=== PATIENT | female | born 1950 | race Caucasian/White ===

== ENCOUNTER → 2016-08-19 | Outpatient (CLI) | payer BC, OTHER ==
[2016-08-19 10:21] LABS: CH 31.1; CHCM 30.7; HCT 39.8 % (34.0-46.0); HDW 1.97; HGB 12.6 gm/dL (11.4-16.0); Hypochromasia Slight; MCH 32.2 pg (25.0-35.0); MCHC 31.6 g/dL (31.0-37.0); MCV 101.9 fL (80.0-100.0); Macrocytosis Slight; Mean Platelet Volume 7.2; RBC 3.91 m/uL (3.80-5.40); RDW 13.1 % (11.5-15.5); WBC 4.1 k/uL (3.8-10.6)
[2016-08-19 10:28] LABS: ALT 26 U/L (9-52); AST 26 U/L (14-36); Alkaline Phosphatase 52 U/L (38-126); Anion Gap 8 mmol/L; Blood Urea Nitrogen 10 mg/dL (7-17); Calcium 9.8 mg/dL (8.4-10.2); Carbon Dioxide 29 mmol/L (22-30); Chloride 106 mmol/L (98-107); Cholesterol 236 mg/dL (<200); HDL Cholesterol 101 mg/dL (40-60); Non-African American GFR(MDRD) >60 (>60 ml/min/1.73 sqM); Potassium 4.3 mmol/L (3.5-5.1); Sodium 143 mmol/L (137-145); Total Bilirubin 0.7 mg/dL (0.2-1.3); Triglycerides 81 mg/dL (<150)
[2016-08-19 10:45] LABS: Glucose 50 mg/dL (74-99)
== END | disposition home or self-care (01) ==
LOC: LABWHC1 09:35
PROVIDERS: ATTEND Internal Medicine Clinical Cardiac Electrophysiology
DX: E78.5 Hyperlipidemia, unspecified (principal); I48.0 Paroxysmal atrial fibrillation; R94.39 Abnormal result of other cardiovascular function study
CPT/HCPCS: 36415; 80053; 80061; 84443; 85027

== ENCOUNTER → 2016-09-01 | Day surgery (SDC) | payer BC, OTHER ==
[2016-08-31 10:23] VITALS: BMI 25.0
[~2016-09-01] MED LIST: ACETAMINOPHEN TAB 500 MG TAB PO PRN; ALPRAZolam 0.25 MG TAB PO PRN; ALPRAZolam 0.5 MG TAB PO PRN; ASPIRIN 325 MG TAB PO STA; ATORVASTATIN 80 MG TAB PO STA; CETIRIZINE HCL 5 MG PO PRN; DIGOXIN 250 MCG TAB PO SCH; IOHEXOL 350 MG/ML 125ML BOTTLE INJ ONE; LIDOCAINE 2% INJ 20 MG/ML (20 ML MDV) ONE; LIDOCAINE 2% INJ 20 MG/ML SQ ONE; LORazepam 1 MG TAB PO PRN; METOPROLOL SUCCINATE (ER) 25 MG TAB.ER.24H PO SCH; MIDAZOLAM 2 MG/2 ML VIAL IV ONE; NITROGLYCERIN SL TABS 0.4 MG TAB SUBLINGUAL PRN; NON-FORMULARY DRUG (Aspirin [Adult Low Dose Aspirin Ec] 162 MG) PO SCH; RX INFO: IV CONTRAST WAS GIVEN 1 EACH MISC MISCELLANE PRN; SODIUM CHLORIDE 0.9% 1,000 ML IV SCH; SODIUM CHLORIDE 0.9% 1,000 ML in EMPTY BAG 1 BAG IV ONE; TEMAZEPAM 30 MG CAP PO PRN; VERAPAMIL 2.5 MG/ML 2 ML AMP ONE; diphenhydrAMINE 50 MG/ML 1 ML VIAL IVP ONE; diphenhydrAMINE 50 MG/ML 1 ML VIAL ONE; fentaNYL (PF) 50 MCG/ML 2 ML AMP IV ONE; fentaNYL (PF) 50 MCG/ML 2 ML AMP ONE
[2016-09-01 07:07] VITALS: RESP 18
[2016-09-01 07:30] LABS: Glucose,Whole Blood 80 mg/dL (75-99)
--- NOTE | 2016-09-01 10:59 | CC ---
DATE OF SERVICE: Ms. Arriaga is a 66-year-old female with known history of hyperlipidemia, paroxysmal atrial fibrillation who has been complaining of dyspnea on exertion. Has underwent a stress echocardiogram by Dr. Cramer, was found to have an abnormal stress echo and because of that, recommendation regarding cardiac catheterization. The procedure as well as the risks and complications were discussed with the patient who was in full understanding and agreement. PROCEDURE: Patient was brought to the [facility] in a fasting semi-sedated state after introducing fentanyl and Benadryl and achieving moderate conscious sedated state. Using Xylocaine anesthesia and Seldinger technique, the right radial artery was cannulated but there was inability to advance the wire because of vasospasm. At that time, using Xylocaine anesthesia and Seldinger technique, a 6 Algerian sheath was introduced in the right femoral artery. Selective right and left coronary angiography was performed using 6 Algerian 4 Bend right Pita catheter. Multiple views of coronary artery, including hemiaxial views were obtained. Following that, a 6 Algerian tight Pigtail catheter was introduced into the left ventricle and a 30 degree ROBLES view of the left ventricle was obtained. Following that, catheter and sheath were removed. Hemostasis was obtained with deployment of an Angio-Seal. There were no immediate complications. Patient is returned to her room in stable condition. FINDINGS: LEFT MAIN: This is a short-sized vessel bifurcating into circumflex, left anterior artery, left main coronary artery is without any obstructive coronary artery disease. LEFT ANTERIOR DESCENDING ARTERY: This is a large-size vessel reaching toward the apex with a wraparound apex segment, giving rise to a moderately-sized diagonal branch in mid segment. The left anterior descending artery as well as its branches, have no evidence of obstructive lung disease. LEFT CIRCUMFLEX: This is a nondominant vessel, giving rise to 2 moderately-sized obtuse marginal branch. The left circumflex as well as its branches have no evidence of obstructive lung disease. RIGHT CORONARY ARTERY: This is a large dominant vessel, bifurcating into PDA and posterolateral segment and branches. The right coronary artery as well as its branches have no evidence of obstructive coronary artery disease. LEFT VENTRICULOGRAM: Left ventriculogram was performed in 30 degrees ROBLES view and revealed normal ventricular size and systolic function. Ejection fraction 60%. There was no evidence of mitral regurgitation. HEMODYNAMICS: There was no gradient across the aortic valve. The left ventricular end-diastolic pressure was 14 mmHg. CONCLUSION: 1. Normal coronary arteries. 2. Normal left ventricular size and systolic function. RECOMMENDATION: In view of finding anatomy, would recommend to continue medical therapy with aggressive risk modification. Those findings and recommendations were discussed with the patient and she is in full understanding and agreement. The duration of the procedure is 32 minutes.
--- NOTE | 2016-09-01 11:02 | LTR ---
September 01, 2016 RE: Rom Arriaga Dear Dr. Enciso; I had the pleasure to perform cardiac catheterization on Ms. Arriaga at [facility] on September 01, 2016 and a full copy of the procedure note will be forwarded to you. In brief, she was found to have no evidence of obstructive coronary artery disease with a preserved left ventricular size and systolic function. Based on those findings, I would recommend to continue medical therapy with the aggressive risk modifications being initiated and thank you again for allowing me to participate in this patients care. Please feel to call for any questions. Sincerely yours, KARL ROB MD
[2016-09-01 14:34] VITALS: TEMP 98.2
[2016-09-01 15:49] VITALS: BP 118/64; PULSE 58
== END | disposition home or self-care (01) ==
LOC: CATHCVL 06:44
PROVIDERS: ATTEND Internal Medicine Interventional Cardiology
DX: R94.39 Abnormal result of other cardiovascular function study (principal); E78.5 Hyperlipidemia, unspecified; I48.0 Paroxysmal atrial fibrillation; R07.89 Other chest pain; R06.00 Dyspnea, unspecified; I10 Essential (primary) hypertension; E78.00 Pure hypercholesterolemia, unspecified; Z79.82 Long term (current) use of aspirin; Z79.899 Other long term (current) drug therapy; Z88.8 Allergy status to other drugs, medicaments and biological substances; Z87.891 Personal history of nicotine dependence
CPT/HCPCS: 93458; 99152; 99153; C1760; C1894 ×2; C1769; J2001; J2250; J1200; J3010; Q9967

== ENCOUNTER 2016-11-15 13:21 | Day surgery (SDC) | payer BC ==
[~2016-11-15 13:21] MED LIST changes: -ACETAMINOPHEN TAB 500 MG TAB PO PRN; -ALPRAZolam 0.25 MG TAB PO PRN; -ALPRAZolam 0.5 MG TAB PO PRN; -ASPIRIN 325 MG TAB PO STA; -ATORVASTATIN 80 MG TAB PO STA; -CETIRIZINE HCL 5 MG PO PRN; -DIGOXIN 250 MCG TAB PO SCH; -IOHEXOL 350 MG/ML 125ML BOTTLE INJ ONE; -LIDOCAINE 2% INJ 20 MG/ML (20 ML MDV) ONE; -LIDOCAINE 2% INJ 20 MG/ML SQ ONE; -LORazepam 1 MG TAB PO PRN; -METOPROLOL SUCCINATE (ER) 25 MG TAB.ER.24H PO SCH; -MIDAZOLAM 2 MG/2 ML VIAL IV ONE; -NITROGLYCERIN SL TABS 0.4 MG TAB SUBLINGUAL PRN; -NON-FORMULARY DRUG (Aspirin [Adult Low Dose Aspirin Ec] 162 MG) PO SCH; -RX INFO: IV CONTRAST WAS GIVEN 1 EACH MISC MISCELLANE PRN; -SODIUM CHLORIDE 0.9% 1,000 ML in EMPTY BAG 1 BAG IV ONE; -TEMAZEPAM 30 MG CAP PO PRN; -VERAPAMIL 2.5 MG/ML 2 ML AMP ONE; -diphenhydrAMINE 50 MG/ML 1 ML VIAL IVP ONE; -diphenhydrAMINE 50 MG/ML 1 ML VIAL ONE; -fentaNYL (PF) 50 MCG/ML 2 ML AMP IV ONE; -fentaNYL (PF) 50 MCG/ML 2 ML AMP ONE
[2016-11-15 13:45] VITALS: PULSE 58; TEMP 98.4
[2016-11-15] MEDS ORDERED: IV FLUID CONTINUATION 1,000 ML IV ONE (14:35)
[2016-11-15 16:15] VITALS: BP 135/70; RESP 18
--- NOTE | 2016-11-16 13:47 | P.PCN ---
Preoperative Diagnosis: Postoperative Diagnosis: Procedure(s) Performed: Twelve-lead ECG Sinus mechanism normal [place] narrow QRS normal ST segments normal QT interval Tilt table test report Patient was tilted upright at an angle of 70 per protocol Within 12-14 minutes there was a sudden drop in her blood pressure that is preceded by a mild increase in heart rate. Lowest blood pressure recorded by [facility] site was 67 mmHg. Patient complained of dizziness and palpitations. Her blood pressure improved when she laid flat Impression Neurocardiogenic response to upright tilting Suggest Increase fluid and salt intake Strength training of the core body and lower extremities Implants: Anesthesia: none Indications for Procedure: Operative Findings: Description of Procedure:
--- NOTE | 2016-12-08 09:54 | CGM ---
Dear. Dr. Cramer, In order to code and bill for this encounter, a diagnosis is needed. Please provide a diagnosis. You may provide both an admitting/preoperative diagnosis and a final/postoperative diagnosis, if they are different and necessary. Please provide this information as a an addendum to the operative report. Thank you MARGOT Garcia
--- NOTE | 2016-12-22 08:49 | CDI ---
SECOND QUERY REQUEST. RESPONSE REQUIRED. Dear. Dr. Craemr, In order to code and bill for this encounter, a diagnosis is needed. Please provide a diagnosis. You may provide both an admitting/preoperative diagnosis and a final/postoperative diagnosis, if applicable. Please provide this information as an addendum to the operative report. If you do not understand what is needed from you, please contact my manager photo, Lyn Horton at [phone]. Thank you MARGOT Garcia
== END 2016-11-15 16:10 | disposition home or self-care (01) ==
LOC: CATHEP 13:21
PROVIDERS: ATTEND Internal Medicine Clinical Cardiac Electrophysiology
DX: R55 Syncope and collapse (principal)
CPT/HCPCS: 93005; 93660

== ENCOUNTER → 2017-05-25 | Outpatient (CLI) | payer MEDICARE, BC ==
--- NOTE | 2017-05-25 14:17 | MM ---
Reason for exam: additional evaluation requested from prior study. Last mammogram was performed 1 year and 2 months ago. History: Patient is postmenopausal, has history of high-risk lesion on a previous biopsy at age 64, and had first child at age 38. High risk MG pre op needle loc LT of the left breast, July 22, 2014. High risk MG stereo VAD BX LT of the left breast, July 02, 2014. Physical Findings: Nurse did not find any significant physical abnormalities on exam. MG 3D Diag Mammo W/Cad HUGO Bilateral CC and MLO view(s) were taken. Prior study comparison: February 27, 2016, bilateral MG screening mammo w CAD. May 08, 2014, bilateral MG screening mammo w CAD. The breast tissue is heterogeneously dense. This may lower the sensitivity of mammography. No significant new findings when compared with previous films. These results were verbally communicated with the patient and result sheet given to the patient on 05/25/17. ASSESSMENT: Benign, BI-RAD 2 RECOMMENDATION: Routine screening mammogram of both breasts in 1 year. Manage patient on a clinical basis. (Pain).
== END | disposition home or self-care (01) ==
LOC: RADMAMWWP 11:18
PROVIDERS: ATTEND Family Medicine
DX: N64.4 Mastodynia (principal); R92.8 Other abnormal and inconclusive findings on diagnostic imaging of breast
CPT/HCPCS: 77066; G0279

== ENCOUNTER → 2017-07-19 | Outpatient (CLI) | payer MEDICARE, BC ==
--- NOTE | 2017-07-19 15:26 | MR ---
MRI CERVICAL SPINE: CLINICAL HISTORY: Cervicalgia per order. Headache with neck pain for 6 years per patient. TECHNIQUE: Multiplanar, multisequence imaging of the cervical spine is performed without IV contrast. COMPARISON: None. FINDINGS: Sagittal images of the cervical spine show the craniocervical junction to appear within nor mal limits. The cervical and upper thoracic spinal cord is normal in course, caliber, and signal. Th ere is slight grade 1 retrolisthesis of C5 on C6. There is mild to moderate disc space narrowing C5-C 6 and C6-C7 levels. Small posterior disc herniations are seen at these levels on sagittal images. Th e vertebral body and intravertebral disk heights otherwise are normal. The bone marrow signal intens ity is within normal limits. No significant spurring is seen. Axial images show the C2-C3 level to appear within normal limits. Axial images at C3-C4 level show uncovertebral facet degenerative changes bilaterally contributing to mild to moderate bilateral neural foraminal narrowing. There is tiny central disc protrusion mildly effacing anterior thecal sac. Axial images at C4-C5 level shows central disc protrusion mildly effacing anterior thecal sac and unc overtebral facet degenerative changes causing mild to moderate bilateral neural foraminal narrowing. Axial images at C5-C6 level show broad-based left paracentral disc protrusion and uncovertebral facet arthropathy, there is mild effacement anterior thecal sac and moderate bilateral neural foraminal na rrowing noted. Axial images at C6-C7 level show focal central disc protrusion effacing anterior thecal sac and causi ng mild bilateral neural foraminal narrowing. Axial images at C7-T1 level are felt within normal limits. There is heterogeneous mildly prominent thyroid gland noted. IMPRESSION: Multilevel degenerative changes in the cervical spine as detailed above most prominent at C5-C6 and C6-C7 levels.
== END | disposition home or self-care (01) ==
LOC: RADMRIMAIN 13:59
PROVIDERS: ATTEND Physician Assistant
DX: M47.812 Spondylosis without myelopathy or radiculopathy, cervical region (principal)
CPT/HCPCS: 72141

== ENCOUNTER 2017-08-22 19:47 | Emergency (ER) | payer MEDICARE, BC ==
[2017-08-22 19:55] VITALS: RESP 18; TEMP 98.6
[2017-08-22] MEDS ORDERED: LORazepam 0.5 MG TAB PO STA (20:01)
[2017-08-22] MEDS ORDERED: LORazepam 1 MG TAB PO STA (20:08)
[2017-08-22 20:18] LABS: Basophils % (A) 0 %; Eosinophils # (A) 0.4 k/uL (0-0.7); Eosinophils % (A) 6 %; HCT 39.2 % (34.0-46.0); HGB 12.6 gm/dL (11.4-16.0); Lymphocytes % (A) 27 %; MCH 30.6 pg (25.0-35.0); MCHC 32.2 g/dL (31.0-37.0); MCV 95.1 fL (80.0-100.0); Mean Platelet Volume 7.7; Monocytes # (A) 0.5 k/uL (0-1.0); Monocytes % (A) 6 %; Neutrophils # (A) 4.3 k/uL (1.3-7.7); Neutrophils % (A) 59 %; Platelet Count 250 k/uL (150-450); RBC 4.12 m/uL (3.80-5.40); RDW 12.8 % (11.5-15.5); WBC 7.3 k/uL (3.8-10.6)
[2017-08-22 20:30] LABS: Calcium 9.9 mg/dL (8.4-10.2)
[2017-08-22 20:41] VITALS: BP 133/60; PULSE 78
--- NOTE | 2017-08-22 20:51 | ED ---
Arrhythmia/Palpitations HPI - General Chief Complaint: Arrhythmia/Palpitations Stated Complaint: Cardiac issues Time Seen by Provider: 08/22/17 19:56 Source: EMS Mode of arrival: EMS Limitations: no limitations - History of Present Illness Initial Comments: This is a 67-year-old female who presents emergency department for palpitations and anxiety. The patient states that this started this afternoon. She states that she was unsure if she took her digoxin earlier today and became concerned that she was going back into atrial fibrillation such: Amiodarone's. She did take an additional half tablet of digoxin prior to coming to the emergency department for fear of the atrial fibrillation. She states that she has been very anxious and feels like this is related to her anxiety however did not take her home dose of Ativan because she had fear that it would interfere with the digoxin. She denies any chest pain or short of breath. No lightheadedness. No lower extremity swelling. No nausea, vomiting, or diarrhea. She denies any other acute complaints. - Related Data Home Medications Medication Instructions Recorded Confirmed Digoxin [Lanoxin] 250 mcg PO DAILY 07/18/14 08/22/17 LORazepam [Ativan] 1 mg PO DAILY PRN 07/18/14 08/22/17 Metoprolol Succinate (ER) [Toprol 25 mg PO HS 07/18/14 08/22/17 Xl] Acetaminophen Tab [Tylenol] 500 mg PO Q4H PRN 09/30/15 08/22/17 Atorvastatin [Lipitor] 20 mg PO HS 11/15/16 08/22/17 Aspirin 325 mg PO HS 08/22/17 08/22/17 Metoprolol Succinate (ER) [Toprol 12.5 mg PO DAILY 08/22/17 08/22/17 Xl] Zolpidem [Ambien] 10 mg PO HS PRN 08/22/17 08/22/17 Allergies Allergy/AdvReac Type Severity Reaction Status Date / Time adhesive Allergy Itching, Verified 08/22/17 20:13 bumps caffeine Allergy Rapid Verified 08/22/17 20:13 Heart Rate Calcium Channel Blocking Allergy Rash/Hives Verified 08/22/17 20:13 Agents-Dih clonidine Allergy arrhythmia Verified 08/22/17 20:13 epinephrine Allergy Rapid Verified 08/22/17 20:13 Heart Rate erythromycin base Allergy Rash/Hives Verified 08/22/17 20:13 Sulfa (Sulfonamide Allergy Rash/Hives Verified 08/22/17 20:13 Antibiotics) verapamil Allergy arrhythmia Verified 08/22/17 20:13 Review of Systems ROS Statement: Those systems with pertinent positive or pertinent negative responses have been documented in the HPI. ROS Other: All systems not noted in ROS Statement are negative. Past Medical History Past Medical History: Atrial Fibrillation, Chest Pain / Angina, GERD/Reflux Additional Past Medical History / Comment(s): migraines, varicose veins, DIGESTIVE PROBLEMS History of Any Multi-Drug Resistant Organisms: None Reported Past Surgical History: Breast Surgery, Section Additional Past Surgical History / Comment(s): breast biopsy 06/2014, COLONOSCOPY AND EGD Past Anesthesia/Blood Transfusion Reactions: Postoperative Nausea & Vomiting ( PONV) Additional Past Anesthesia/Blood Transfusion Reaction / Comment(s): "epidural did not take" Past Psychological History: Anxiety, Depression Smoking Status: Former smoker Past Alcohol Use History: Rare Past Drug Use History: None Reported - Past Family History Sister(s) Family Medical History: Cancer Additional Family Medical History / Comment(s): kidney General Exam - General Exam Comments Initial Comments: Constitutional: Awake alert Appears comfortable Head: Normocephalic atraumatic Eyes: no conjunctival injection No scleral icterus EOMI Neck: No JVD Supple Heart: Regular rate rhythm normal S1-S2 no murmurs Lungs: Clear to auscultation bilaterally No wheezing No rales Abdomen: Soft nondistended nontender Extremities: Non edematous DP pulses intact Radial pulses intact Neuro: A&Ox3 No focal neurologic deficits Psych: Appropriate mood and affect Limitations: no limitations Course Vital Signs 08/22/17 08/22/17 08/22/17 19:51 20:40 21:04 Temperature 98.6 F 98.6 F Pulse Rate 57 L 78 Respiratory 18 18 Rate Blood Pressure 151/67 133/60 O2 Sat by Pulse 99 98 Oximetry EKG Findings - EKG Comments: EKG Findings:: EKG showing normal sinus rhythm with a rate 65. There is no abnormal ST segment changes or T-wave inversions. QTC is 409. Other intervals normal. No ectopy. Medical Decision Making - Lab Data Result diagrams: 08/22/17 20:04 08/22/17 20:04 Lab Results 08/22/17 08/22/17 Range/Units 20:04 20:04 WBC 7.3 (3.8-10.6) k/uL RBC 4.12 (3.80-5.40) m/uL Hgb 12.6 (11.4-16.0) gm/dL Hct 39.2 (34.0-46.0) % MCV 95.1 (80.0-100.0) fL MCH 30.6 (25.0-35.0) pg MCHC 32.2 (31.0-37.0) g/dL RDW 12.8 (11.5-15.5) % Plt Count 250 (150-450) k/uL Neutrophils % 59 % Lymphocytes % 27 % Monocytes % 6 % Eosinophils % 6 % Basophils % 0 % Neutrophils # 4.3 (1.3-7.7) k/uL Lymphocytes # 2.0 (1.0-4.8) k/uL Monocytes # 0.5 (0-1.0) k/uL Eosinophils # 0.4 (0-0.7) k/uL Basophils # 0.0 (0-0.2) k/uL Sodium 143 (137-145) mmol/L Potassium 4.0 (3.5-5.1) mmol/L Chloride 105 (98-107) mmol/L Carbon Dioxide 26 (22-30) mmol/L Anion Gap 12 mmol/L BUN 9 (7-17) mg/dL Creatinine 0.80 (0.52-1.04) mg/dL Est GFR (CKD-EPI)AfAm 90 (>60 ml/min/1.73 sqM) Est GFR (CKD-EPI)NonAf 78 (>60 ml/min/1.73 sqM) Glucose 91 (74-99) mg/dL Calcium 9.9 (8.4-10.2) mg/dL Digoxin 1.0 ng/mL Disposition Clinical Impression: Palpitations, Anxiety Disposition: HOME SELF-CARE Condition: Stable Instructions: Palpitations (ED) Is patient prescribed a controlled substance at d/c from ED?: No Referrals: Miranda Enciso III, MD [Primary Care Provider] - 1-2 days
== END 2017-08-22 21:05 | disposition home or self-care (01) ==
LOC: EC 19:47
DX: R00.2 Palpitations (principal); F41.9 Anxiety disorder, unspecified; I48.91 Unspecified atrial fibrillation; Z87.891 Personal history of nicotine dependence; Z79.82 Long term (current) use of aspirin; Z79.899 Other long term (current) drug therapy; Z88.1 Allergy status to other antibiotic agents; Z88.2 Allergy status to sulfonamides; Z91.018 Allergy to other foods; Z88.8 Allergy status to other drugs, medicaments and biological substances
CPT/HCPCS: 36415; 80048; 80162; 85025; 93005; 99285